=== PATIENT | female | born 1965 | race Two or more races ===

== ENCOUNTER 2017-10-21 19:05 | Emergency (ER) | payer SELFPAY ==
[~2017-10-21] VITALS: Ht 165.1 cm; Wt 90.7 kg
--- NOTE | 2017-10-21 19:10 | NUR ---
"GLF; C/O RT FACIAL/RT RING FINGER/MARKIE LE PAIN"; DENIES HEAD TRAUMA, NAD NOTED, VSS, RESP EVEN AND UNLABORED, PT WAS PUT ON MONITOR, MD AT BS.
[2017-10-21] MEDS ORDERED: HYDROCODONE/APAP 10/325MG 1 EA TABLET ONE (19:24)
[2017-10-21] MEDS ORDERED: ONDANSETRON 4 MG TAB.RAPDIS ONE (19:25)
[2017-10-21] MEDS: HYDROCODONE/APAP 10/325MG 1 EA TABLET PO ONE (19:33)
[2017-10-21] MEDS: ONDANSETRON 4 MG TAB.RAPDIS SL ONE (19:33)
[2017-10-21 21:33] VITALS: BP 127/80
--- NOTE | 2017-10-21 21:33 | NUR ---
Patient discharged to home in stable condition. Written and verbal after care instructions given. Patient verbalizes understanding of instruction. Prescription given.
== END 2017-10-21 21:35 | disposition home or self-care (01) ==
LOC: ER 19:06
DX: S09.8XXA Other specified injuries of head, initial encounter (principal); S60.041A Contusion of right ring finger without damage to nail, initial encounter; S80.01XA Contusion of right knee, initial encounter; W01.0XXA Fall on same level from slipping, tripping and stumbling without subsequent striking against object, initial encounter; Y93.89 Activity, other specified; Y92.89 Other specified places as the place of occurrence of the external cause; Y99.8 Other external cause status
CPT/HCPCS: 70450-TC; 73140-TC; 73564-TC; A4606; Q0162; Z7610

== ENCOUNTER 2024-01-16 23:11 | Emergency (ER) | payer MEDICAID, OTHER ==
[~2024-01-16] VITALS: Ht 162.6 cm; Wt 80.3 kg
--- NOTE | 2024-01-17 00:47 | NUR ---
TIEN C/O BACK, R SHOULDER, & R KNEE PAIN S/P SLIP AND FALL AT WORK
[2024-01-17] MEDS ORDERED: KETOROLAC TROMETHAMINE INJ 30 MG/ML VIAL ONE (01:08)
[2024-01-17] MEDS ORDERED: ACETAMINOPHEN 325 MG TABLET ONE (01:08)
[2024-01-17] MEDS: KETOROLAC TROMETHAMINE INJ 30 MG/ML VIAL IM ONE (01:14)
[2024-01-17] MEDS: ACETAMINOPHEN 325 MG TABLET PO ONE (01:14)
--- NOTE | 2024-01-17 01:47 | NUR ---
PATIENT TAKEN TO CT VIA SOPHIE
[2024-01-17 10:33] VITALS: BP 18/77; TEMP 98.1; O2SAT 98
--- NOTE | 2024-01-17 10:34 | NUR ---
Patient discharged to home in stable condition. Written and verbal after care instructions given. Patient verbalizes understanding of instruction.
== END 2024-01-17 10:34 | disposition home or self-care (01) ==
LOC: ER 23:13
DX: M25.511 Pain in right shoulder (principal); M54.59 Other low back pain; M25.561 Pain in right knee; M25.521 Pain in right elbow; E11.9 Type 2 diabetes mellitus without complications; W01.0XXA Fall on same level from slipping, tripping and stumbling without subsequent striking against object, initial encounter; Y93.89 Activity, other specified; Y92.89 Other specified places as the place of occurrence of the external cause; Y99.0 Civilian activity done for income or pay
CPT/HCPCS: 99285; 72131; 96372; 73080; 73564; 73030; 72128; J1885